=== PATIENT | male | born 1960 | race Asian ===

== ENCOUNTER 2016-11-22 16:23 | Emergency (ER) | payer SELFPAY ==
[2016-11-22 16:34] VITALS: TEMP 97.6
[2016-11-22] MEDS ORDERED: SODIUM CHLORIDE 0.9% 1000ML 1,000 ML IV ONE (16:48)
[2016-11-22] MEDS ORDERED: ONDANSETRON HCL 4 MG/2 ML SOL IV ONE (16:49)
[2016-11-22 16:57] LABS: BASOPHILS % (AUTO) 1 % (0-3); EOSINOPHILS % (AUTO) 0 % (0-9); HEMATOCRIT 41 % (39-53); MEAN CORPUSCULAR HGB CONC 33.5 gm/dl (32.0-36.0); MONOCYTES % (AUTO) 5.2 % (0-12)
[2016-11-22 16:58] LABS: MEAN CORPUSCULAR VOLUME 80 fL (80-100)
[2016-11-22] MEDS ORDERED: SODIUM CHLORIDE 0.9% FLUSH 10 ML SOL IV PRN (17:05)
[2016-11-22 17:09] LABS: ALBUMIN 3.8 gm/dl (3.4-5.0); CALCIUM 8.3 mg/dl (8.5-10.1); POTASSIUM 3.7 mMol/L (3.5-5.1)
[2016-11-22 17:11] VITALS: PULSE 76
[2016-11-22 17:17] LABS: METHADONE NEGATIVE (NEGATIVE); TRICYCLIC ANTIDEPRESSANTS NEGATIVE (NEGATIVE)
[2016-11-22 17:18] LABS: AMPHETAMINES NEGATIVE (NEGATIVE); OPIATES(OP13) NEGATIVE (NEGATIVE); OXYCODONE(OXY) NEGATIVE (NEGATIVE); PROPOXYPHENE(PPX) NEGATIVE (NEGATIVE)
[2016-11-22] MEDS ORDERED: ONDANSETRON HCL 4 MG/2 ML SOL ONE (17:31)
[2016-11-22 18:40] VITALS: BP 151/107; RESP 16; O2SAT 99
== END 2016-11-22 18:40 | disposition home or self-care (01) | DRG 897 ==
LOC: ED 16:23
DX: F15.10 Other stimulant abuse, uncomplicated (principal)
CPT/HCPCS: 36415; 80053; 80305; 80307; 85025; 96365; 96374; 99283; 99284; J2405